=== PATIENT | male | born 1965 | race Caucasian/White ===

== ENCOUNTER 2024-01-31 17:02 | Emergency (ER) | payer BC, SELFPAY ==
[2024-01-31] VITALS (14 sets, daily range): BP systolic 134–166; BP diastolic 97–113; PULSE 77–82; RESP 12–18; TEMP 36.6–36.9; O2SAT 95–100
--- NOTE | ~2024-01-31 | XR_ITS ---
EXAMINATION: XR chest 1V portable DATE: 01/31/2024 17:59 INDICATION: Dyspnea. TECHNIQUE: A single frontal view of the chest was obtained on 2 radiographs. COMPARISON: Chest 2 views 08/28/2010 FINDINGS: There is mild atelectasis in left lower lung zone. No pleural effusion or pneumothorax. The heart size is normal. IMPRESSION: 1. Mild atelectasis in left lower lung zone. Reviewed, dictated and finalized at location E. [facility]
--- NOTE | 2024-01-31 17:03 | ECG_ITS ---
Measurements Intervals [place] Rate: 83 P: 43 MD: 148 QRS: -50 QRSD: 117 T: 37 QT: 367 QTc: 433 Interpretive Statements SINUS RHYTHM LEFT AXIS DEVIATION INTRAVENTRICULAR CONDUCTION DELAY CONSIDER INFERIOR INFARCT, AGE INDETERMINATE BASELINE ARTIFACT- II, III, V5-V6 ABNORMAL ECG NO PREVIOUS ECG AVAILABLE FOR COMPARISON Electronically Signed On 01-31-2024 18:27:48 [employer] by Basim Castro D.O.
--- NOTE | 2024-01-31 17:12 | ED.CHESTPAIN ---
HPI - Chest Pain General Chief Complaint: Chest Pain <Nader Cisse PA-C - Last Filed: 01/31/24 17:27> Stated Complaint: chest tightness <Nader Cisse PA-C - Last Filed: 01/31/24 17:27> Time Seen by Provider: 01/31/24 17:12 <Nader Cisse PA-C - Last Filed: 01/31/24 17:27> Focused HPI: This is a 58-year-old male who presents to the ED with chief complaint of chest tightness for the past several weeks. Patient reports that he had a viral illness at the beginning of the year and since then has had central chest tightness. denies any pleuritic pain. Denies chest pain or heaviness. he does state that he gets short of breath at times with exertion but this seems to be improving ever since November. Denies fevers, chills, cough, leg swelling, Syncope, nausea, vomiting. States he a ran out of his inhaler several weeks ago. also notes that the steroids that he received initially helped the most with the tightness. GENERAL: Well-appearing, well-nourished, and in no acute distress. HEAD: Normocephalic, atraumatic. CHEST: Clear to auscultation. No respiratory distress. HEART: Regular rate and rhythm. NEURO: Alert and oriented x3. Patient screened in triage and initial orders placed. Additional care and disposition to be based upon diagnostic testing and treatment. <Nader Cisse PA-C - Last Filed: 01/31/24 17:27> Focused HPI: This is a 58-year-old male who presents to the ED with chief complaint of chest tightness for the past several weeks. Patient reports that he had a viral illness at the beginning of the year and since then has had central chest tightness. denies any pleuritic pain. Denies chest pain or heaviness. He does state that he gets short of breath at times with exertion but this seems to be improving ever since November. Denies fevers, chills, cough, leg swelling, Syncope, nausea, vomiting. States he a ran out of his inhaler several weeks ago. also notes that the steroids that he received initially helped the most with the tightness. GENERAL: Well-appearing, well-nourished, and in no acute distress. HEAD: Normocephalic, atraumatic. CHEST: Clear to auscultation. No respiratory distress. HEART: Regular rate and rhythm. NEURO: Alert and oriented x3. Patient screened in triage and initial orders placed. Additional care and disposition to be based upon diagnostic testing and treatment. <Gabriela Harris PA-C - Last Filed: 01/31/24 21:35> Source: patient <Nader Cisse PA-C - Last Filed: 01/31/24 17:27> Mode of arrival: ambulatory <Nader Cisse PA-C - Last Filed: 01/31/24 17:27> Limitations: no limitations <Nader Cisse PA-C - Last Filed: 01/31/24 17:27> Related Data Allergies/Adverse Reactions: Allergies Allergy/AdvReac Type Severity Reaction Status Date / Time No Known Allergies Allergy Mild Verified 01/31/24 17:58 OATMEAL Allergy Mild Swelling Uncoded 01/31/24 17:58 <Nader Cisse PA-C - Last Filed: 01/31/24 17:27> Review of Systems Review of Systems: CONSTITUTIONAL: Denies fever ENT: Reports congestion CARDIOVASCULAR: Denies chest pain, or edema. RESPIRATORY: Reports dyspnea. <Gabriela Harris PA-C - Last Filed: 01/31/24 21:35> All systems reviewed & are unremarkable except as noted in HPI and below <Gabriela Harris PA-C - Last Filed: 01/31/24 21:35> PMFSH Past Medical History Medical History: Medical History (Updated 01/31/24 @ 21:27 by Gabriela Harris PA-C) Cardiomyopathy HTN (hypertension), benign <Nader Cisse PA-C - Last Filed: 01/31/24 17:27> Family History Family History: Family History (Updated 01/17/16 @ 11:34 by DOCTOR UNKNOWN) Mother Patient's mother is , Onset Age: 83 Father Patient's father is , Onset Age: 57 <Nader Cisse PA-C - Last Filed: 01/31/24 17:27> Social History Social History: Social History Smoking status:
[2024-01-31 17:24] LABS: Basophils Absolute Auto 0.1 K/mm3 (0.0-0.1); Basophils Percent Auto 0.9 % (0.2-1.2); Eosinophils Absolute Auto 0.3 K/mm3 (0-0.3); Eosinophils Percent Auto 3.1 % (0-4.4); Hematocrit 59.7 % (42.0-52.0); Hemoglobin 19.6 g/dL (14.0-18.0); Immature Granulocyte Absolute 0.05 K/mm3 (0.00-0.031); Immature Granulocyte Percent A 0.6 % (0-0.5); Lymphocytes Percent Auto 31.4 % (18.3-44.2); Mean Corpuscular HGB Conc 32.8 g/dl (32-36); Mean Corpuscular Hemoglobin 31.4 pg (26-34); Mean Corpuscular Volume 95.5 fl (80-100); Mean Platelet Volume 10.5 fl (7.4-10.4); Monocytes Absolute Auto 1.1 K/mm3 (0.1-0.6); Monocytes Percent Auto 12.3 % (2.6-8.5); Neutrophils Absolute Auto 4.6 K/mm3 (1.3-6.7); Neutrophils Percent Auto 51.7 % (45.5-73.1); Platelet Count Result 226 k/mm3 (150-375); Red Blood Count 6.25 M/mm3 (4.6-6.20); Red Cell Distribution Width 14.8 % (11.5-14.5); White Blood Count 8.9 K/mm3 (4.5-10.0)
[2024-01-31 17:34] LABS: Partial Thromboplastin Time 26.7 SECONDS (22.3-36.8); Prothrombin Time 13.9 Seconds (11.1-14.7)
[2024-01-31 17:46] LABS: Alanine Aminotransferase 62 U/L (6-50); Albumin Level 4.3 g/dL (3.5-5.1); Alkaline Phosphatase 59 U/L (38-126); Anion Gap 7 mmol/L (8-16); Aspartate Amino Transferase 50 U/L (17-59); Bilirubin,Total 0.8 mg/dL (0.2-1.3); Blood Urea Nitrogen 26 mg/dL (9-20); Calcium 8.7 mg/dL (8.4-10.2); Carbon Dioxide 24 mmol/L (22-30); Chloride 104 mmol/L (98-107); Estimated CRCL calculation 67 ml/min; Estimated Glomerular Filt Rate 57; Glucose 80 mg/dL (65-110); Lipase 129 U/L (23-300); Potassium 4.1 mmol/L (3.4-5.0); Sodium 135 mmol/L (137-145)
[2024-01-31] MEDS: IPRATROPIUM 0.5 MG/ALBUTEROL SULFATE 2.5 MG AMPUL.NEB 3 ML INHALATION (18:00)
[2024-01-31 18:07] LABS: Troponin I < 0.012 ng/mL (0.000-0.034)
[2024-01-31 19:00] LABS: D Dimer 0.38 ug/mL (<0.48)
[2024-01-31] MEDS: SODIUM CHLORIDE 0.9% IV 500 ML 999 ML IV CONT (20:24)
[2024-01-31] MEDS: predniSONE 20 MG TABLET 40 MG PO (20:24)
[2024-01-31 21:00] LABS: Troponin I < 0.012 ng/mL (0.000-0.034)
== END 2024-01-31 22:00 | disposition home or self-care (01) ==
PROVIDERS: Emergency Medicine; Emergency Provider Physician Assistant; PCP Internal Medicine
DX: R07.89 Other chest pain (principal); I42.9 Cardiomyopathy, unspecified; I10 Essential (primary) hypertension; I45.9 Conduction disorder, unspecified; R94.31 Abnormal electrocardiogram [ECG] [EKG]
CPT/HCPCS: 36415; 71045; 80053; 83690; 84484; 85025; 85380; 85610; 85730; 93005; 94640; 96360; 99284; J7040; J7512